=== PATIENT | male | born 1995 ===

== ENCOUNTER 2022-07-06 07:46 | Day surgery (SDC) | payer OTHER, SELFPAY ==
[2022-07-05 07:30] VITALS: BMI 35.3
[2022-07-06] VITALS (10 sets, daily range): BP systolic 104–144; BP diastolic 67–83; PULSE 84–106; RESP 12–19; TEMP 36.2–36.6; O2SAT 93–98; BMI 35.9
--- NOTE | 2022-07-06 | DI.RAD.S_ITS ---
PROCEDURE: XR FOOT LT MIN 3V INDICATIONS: LEFT FOOT ORIF TECHNIQUE: 3 views of the foot were acquired. COMPARISON: [facility] Outside Film, CT, CT LOWER EXTREMITY LEFT WITHOUT CONTRAST, 07/04/2022, 10:14. [facility], CR, XR FOOT 3+ VIEWS LEFT, 07/03/2022, 9:42. FINDINGS: Intraoperative images demonstrate fusion between the 1st and 2nd metatarsals and adjacent tarsal bones. Hardware is intact. There is good anatomic alignment. IMPRESSION: Intraoperative ORIF. Dictated by: Lia Owens M.D. on 07/06/2022 at 17:00 Approved by: Lia Owens M.D. on 07/06/2022 at 17:01
[2022-07-06 08:52] LABS: COVID19 -Nasal RAPID Negative (Negative)
[2022-07-06] MEDS: LACTATED RINGERS 1,000 ML 42 ML IV ×2 (09:05→13:25)
--- NOTE | 2022-07-06 10:08 | PM.PREOP ---
Pre-operative Note COVID-19 COVID-19 status: Negative Interval Note History & Physical reviewed/Exam performed by Physician: Yes Changes to H&P: No
[2022-07-06] MEDS: CEFAZOLIN 2 GM/100 ML PREMIX 100 ML IV (10:40)
[2022-07-06] MEDS: BUPIVACAINE 0.25% (PF) VIAL 30 ML INJ (11:12)
[2022-07-06] MEDS: EPINEPHrine 1 MG/ML 0.15 MG INJ (11:13)
--- NOTE | 2022-07-06 11:24 | SUR.OPER ---
Supine on padded OR bed, head on pillow, arms secured on padded arm boards at <90 degrees abduction, legs uncrossed, safety belt at lower torso, tape over blanket over right lower leg, gel pad under right lower leg and heel. Folded blanket under left hip for bump. Lateral padded brace placed to left hip, left leg in control of the Surgeon.
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
[2022-07-06] MEDS: fentaNYL 100 MCG/2 ML INJ IV ×2 (12:25→12:35)
[2022-07-06] MEDS: HYDROMORPHONE 2 MG INJ IV ×2 (12:31→12:43)
[2022-07-06] MEDS: hydrOXYzine 50 MG/ML INJ 25 MG IM (12:32)
[2022-07-06] MEDS: HYDROCODONE/ACET 5/325 TABLET 1 TAB PO ×2 (12:34→13:04)
[2022-07-06] MEDS: KETOROLAC 30 MG/ML VIAL IV (12:38)
--- NOTE | 2022-07-06 14:02 | SUR.PHASEII ---
1350: Pt A&Ox4, reports pain as tolerable, CMS (+) distal to incision, VSS, and ready to discharge home. Pt reports that was not instructed to have someone with pt overnight and had not planned anything. Made phone call to friend who has agreed to stay with patient. Discharge instructions reviewed with pt with time allowed for questions. Pt left unit stable via w/c to ER entrance where friend will transport pt home.
== END 2022-07-06 13:57 | disposition home or self-care (01) ==
PROVIDERS: PCP Student in an Organized Health Care Education/Training Program; Referring Provider Orthopaedic Surgery Foot and Ankle Surgery; Visit Provider Orthopaedic Surgery Foot and Ankle Surgery
PROC: (CPT 28485; 2022-07-06 09:15)
DX: S93.325A Dislocation of tarsometatarsal joint of left foot, initial encounter (principal); S92.312A Displaced fracture of first metatarsal bone, left foot, initial encounter for closed fracture; V28.0XXA Motorcycle driver injured in noncollision transport accident in nontraffic accident, initial encounter; Z20.822 Contact with and (suspected) exposure to COVID-19
CPT/HCPCS: 28615; 28485 ×2; 28470; 73630; 76000; 87635; C9803; J0171; J0690; J1170; J1885; J3010; J3410; J3490